=== PATIENT | male | born 1960 ===

== ENCOUNTER → 2019-11-02 21:46 | Outpatient (CLI) | payer SELFPAY | END | disposition home or self-care (01) | LOC: D.LABREF 21:46 | DX: C73 Malignant neoplasm of thyroid gland (principal) ==

== ENCOUNTER → 2019-11-09 13:42 | Outpatient (CLI) | payer SELFPAY | END | disposition home or self-care (01) | LOC: D.LABREF 13:42 | DX: C32.9 Malignant neoplasm of larynx, unspecified (principal) ==